=== PATIENT | female | born 1970 | race Caucasian/White ===

== ENCOUNTER 2017-08-14 19:34 | Emergency (ER) | payer MEDICAID ==
[~2017-08-14] VITALS: Ht 177.8 cm; Wt 59.8 kg
[~2017-08-14 19:34] MED LIST: CYCL-1 PO; NEOM10SO7 OT
[2017-08-14 20:15] VITALS: BP 126/75
[2017-08-14] MEDS ORDERED: HYDROcodone/acetaminophen 5mg/325mg tablet PO ONE (22:35)
[2017-08-14 22:55] LABS: APPEARANCE,SYNOVIAL FLUID CLOUDY; COLOR,SYNOVIAL FLUID YELLOW; SYN RBC 33 /CU MM (0); SYN WBC 3175 /CU MM (0-200)
[2017-08-14 22:59] LABS: SYNOVIAL FLUID CRYSTALS QT NO CRYSTALS SEEN
[2017-08-14] MEDS ORDERED: HYDR-3965 PO (23:12)
== END 2017-08-14 23:16 | disposition home or self-care (01) ==
LOC: ER 19:34
DX: M25.461 Effusion, right knee (principal); M25.561 Pain in right knee; F15.10 Other stimulant abuse, uncomplicated; M19.90 Unspecified osteoarthritis, unspecified site; Z88.5 Allergy status to narcotic agent; Z98.890 Other specified postprocedural states
CPT/HCPCS: 20610; 87015; 87070; 87075; 89051; 89060; 99284

== ENCOUNTER 2018-01-22 09:51 | Emergency (ER) | payer MEDICAID ==
[~2018-01-22] VITALS: Ht 177.8 cm; Wt 66.0 kg
[2018-01-22] MEDS ORDERED: SULF1TAB49 PO (10:26)
[2018-01-22] MEDS ORDERED: CEPH-572 PO (10:26)
[2018-01-22 10:34] VITALS: BP 132/82
== END 2018-01-22 10:35 | disposition home or self-care (01) ==
LOC: ER 09:52
DX: L02.811 Cutaneous abscess of head [any part, except face] (principal); M19.90 Unspecified osteoarthritis, unspecified site; M06.9 Rheumatoid arthritis, unspecified; F15.90 Other stimulant use, unspecified, uncomplicated; Z98.890 Other specified postprocedural states; Z88.5 Allergy status to narcotic agent
CPT/HCPCS: 99283

== ENCOUNTER 2018-06-01 14:13 | Emergency (ER) | payer MEDICAID ==
[~2018-06-01] VITALS: Ht 177.8 cm; Wt 60.7 kg
[2018-06-01 14:19] VITALS: BP 116/67
== END 2018-06-01 14:50 | disposition home or self-care (01) ==
LOC: ER 14:14
DX: J02.9 Acute pharyngitis, unspecified (principal); F12.90 Cannabis use, unspecified, uncomplicated; F15.90 Other stimulant use, unspecified, uncomplicated; F17.200 Nicotine dependence, unspecified, uncomplicated; Z98.890 Other specified postprocedural states; Z88.5 Allergy status to narcotic agent; Z79.899 Other long term (current) drug therapy
CPT/HCPCS: 99284

== ENCOUNTER 2018-10-20 16:25 | Emergency (ER) | payer MEDICAID ==
[~2018-10-20] VITALS: Ht 177.8 cm; Wt 63.6 kg
[2018-10-20 16:27] VITALS: BP 188/75
[2018-10-20] MEDS ORDERED: SULF1TAB49 PO (16:54)
== END 2018-10-20 17:13 | disposition home or self-care (01) ==
LOC: ER 16:25
DX: L02.811 Cutaneous abscess of head [any part, except face] (principal); M19.90 Unspecified osteoarthritis, unspecified site; M06.9 Rheumatoid arthritis, unspecified; F12.90 Cannabis use, unspecified, uncomplicated; F15.90 Other stimulant use, unspecified, uncomplicated; Z79.899 Other long term (current) drug therapy; Z79.2 Long term (current) use of antibiotics; Z88.6 Allergy status to analgesic agent; Z88.5 Allergy status to narcotic agent; Z98.890 Other specified postprocedural states
CPT/HCPCS: 99283

== ENCOUNTER 2019-02-06 17:05 | Emergency (ER) | payer MEDICAID ==
[~2019-02-06] VITALS: Ht 177.8 cm; Wt 60.0 kg
[2019-02-06 17:10] VITALS: BP 127/72
[2019-02-06] MEDS ORDERED: HYDR-4353 PO (17:29)
[2019-02-06] MEDS ORDERED: HYDROcodone/acetaminophen 10/325mg tab PO ONE (17:30)
== END 2019-02-06 17:59 | disposition home or self-care (01) ==
LOC: ER 17:06
DX: S83.91XA Sprain of unspecified site of right knee, initial encounter (principal); M19.90 Unspecified osteoarthritis, unspecified site; F41.9 Anxiety disorder, unspecified; F17.200 Nicotine dependence, unspecified, uncomplicated; F12.90 Cannabis use, unspecified, uncomplicated; F15.90 Other stimulant use, unspecified, uncomplicated; Z88.6 Allergy status to analgesic agent; X50.1XXA Overexertion from prolonged static or awkward postures, initial encounter; Y93.89 Activity, other specified; Y92.89 Other specified places as the place of occurrence of the external cause; Y99.8 Other external cause status
CPT/HCPCS: 29515; 73564; 99284

== ENCOUNTER 2019-06-16 16:11 | Emergency (ER) | payer MEDICAID ==
[~2019-06-16] VITALS: Ht 177.8 cm; Wt 59.0 kg
[2019-06-16 16:21] VITALS: BP 117/59
[2019-06-16] MEDS ORDERED: ibuprofen tablet 400 MG TABLET PO ONE (17:35)
== END 2019-06-16 18:12 | disposition home or self-care (01) ==
LOC: ER 16:12
DX: M79.641 Pain in right hand (principal); M06.9 Rheumatoid arthritis, unspecified; F41.9 Anxiety disorder, unspecified; F12.90 Cannabis use, unspecified, uncomplicated; F15.90 Other stimulant use, unspecified, uncomplicated; Z98.890 Other specified postprocedural states; Z88.5 Allergy status to narcotic agent; Z79.2 Long term (current) use of antibiotics; Z79.899 Other long term (current) drug therapy; W01.0XXA Fall on same level from slipping, tripping and stumbling without subsequent striking against object, initial encounter; Y93.89 Activity, other specified; Y92.009 Unspecified place in unspecified non-institutional (private) residence as the place of occurrence of the external cause; Y99.8 Other external cause status
CPT/HCPCS: 29125; 73130; 99283

== ENCOUNTER 2019-07-21 11:50 | Emergency (ER) | payer MEDICAID ==
[~2019-07-21] VITALS: Ht 177.8 cm; Wt 67.8 kg
[2019-07-21] MEDS ORDERED: acetaminophen 325mg tablet PO ONE (13:05)
[2019-07-21] MEDS ORDERED: normal saline 1000ml 1,000 ML IV ONE (13:05)
[2019-07-21] MEDS ORDERED: clindamycin 600mg/D5W 50ml 50 ML IV ONE (13:15)
[2019-07-21] MEDS ORDERED: normal saline 1000ML IV soln IV ONE (13:15)
[2019-07-21] MEDS ORDERED: LIDOcaine 1% W/epiNEPHrine 1:200,000 10ml vial IJ ONE ×2 (13:15)
[2019-07-21] MEDS ORDERED: fentaNYL/PF 50MCG/1 ML 2ML syringe IV ONE (13:15)
[2019-07-21 13:43] LABS: BASOPHILS # (AUTO) 0.1 X10'3 (0-0.2); BASOPHILS % (AUTO) 0.5 % (0-1); EOSINOPHILS # (AUTO) 0.2 X10'3 (0-0.9); EOSINOPHILS % (AUTO) 1.8 % (0-6); HEMATOCRIT 37.9 % (35.0-45.0); HEMOGLOBIN 12.8 g/dl (12.0-16.0); LYMPHOCYTES # (AUTO) 1.3 X10'3 (1.1-4.8); LYMPHOCYTES % (AUTO) 9.4 % (21-51); MEAN CORPUSCULAR HEMOGLOBIN 30.6 PG (27.0-31.0); MEAN CORPUSCULAR HGB CONC 33.9 g/dL (33.0-36.5); MEAN CORPUSCULAR VOLUME 90.3 FL (78-98); MEAN PLATELET VOLUME 8.7 FL (7.4-10.4); MONOCYTES # (AUTO) 1.2 X10'3 (0-0.9); MONOCYTES % (AUTO) 8.5 % (2-12); NEUTROPHILS # (AUTO) 10.9 X10'3 (1.8-7.7); NEUTROPHILS % (AUTO) 79.8 % (42-75); PLATELET COUNT 281 X10'3 (140-440); RED CELL DISTRIBUTION WIDTH 13.4 % (11.5-14.5); WHITE BLOOD COUNT 13.7 X10'3 (4.5-11.0)
[2019-07-21] MEDS ORDERED: CEPH500C5 PO (13:57)
[2019-07-21] MEDS ORDERED: SULF1TAB49 PO (13:57)
[2019-07-21 14:01] LABS: ALANINE AMINOTRANSFERASE 30 U/L (12-78); ALBUMIN 2.9 G/DL (3.4-5.0); ALBUMIN/GLOBULIN RATIO 0.7 (1.1-1.5); ALKALINE PHOSPHATASE 137 IU/L (46-116); ANION GAP 6 (8-16); ASPARTATE AMINO TRANSFERASE 13 U/L (10-37); BILIRUBIN,TOTAL 0.4 MG/DL (0.1-1.0); BLOOD UREA NITROGEN 7 MG/DL (7-18); BUN/CREATININE RATIO 11.1 (6.6-38.0); CALCIUM 8.4 MG/DL (8.5-10.1); CHLORIDE 100 MMOL/L (99-107); CREATININE 0.63 MG/DL (0.40-0.90); GLUCOSE 106 MG/DL (70-104); POTASSIUM 3.3 MMOL/L (3.5-5.1); SODIUM 135 MMOL/L (135-145); TOTAL CARBON DIOXIDE 28.6 MMOL/L (24-32); TOTAL PROTEIN 7.2 G/DL (6.4-8.2); eGFR > 90 ML/MIN
[2019-07-21 14:46] LABS: CLARITY,URINE CLOUDY (Clear); COLOR,URINE YELLOW (Yellow); GLUCOSE, URINE NEGATIVE (Neg); KETONES,URINE NEGATIVE (Neg); LEUKOCYTE ESTERASE ,URINE SMALL (Neg); NITRITES, URINE POSITIVE (Neg); OCCULT BLOOD,URINE SMALL (Neg); PROTEIN,URINE NEGATIVE (Neg); UROBILINOGEN,URINE 0.2 E.U/dL (0.2-1.0)
[2019-07-21 14:50] LABS: UA COLLECTION TYPE CLN CATCH MIDSTREAM
[2019-07-21 14:52] LABS: BACTERIA,URINE 3+ /HPF (Neg); RBC,URINE 0-2 /HPF (0-2); SQUAMOUS EPITHELIAL CELL,UR MANY /LPF (FEW); WBC,URINE 0-4 /HPF (0-4)
[2019-07-21 15:10] VITALS: BP 117/71
== END 2019-07-21 15:13 | disposition home or self-care (01) ==
LOC: ER 11:50
DX: L02.412 Cutaneous abscess of left axilla (principal); M06.9 Rheumatoid arthritis, unspecified; F41.9 Anxiety disorder, unspecified; F17.200 Nicotine dependence, unspecified, uncomplicated; F12.90 Cannabis use, unspecified, uncomplicated; F15.90 Other stimulant use, unspecified, uncomplicated; Z72.89 Other problems related to lifestyle; Z98.890 Other specified postprocedural states; Z88.5 Allergy status to narcotic agent; Z79.899 Other long term (current) drug therapy
CPT/HCPCS: 10060; 36415; 80053; 81001; 83605; 84145; 85025; 87040; 96365; 96375; 99284; J3010; J7030; 87186; J3490

== ENCOUNTER 2020-06-01 21:36 | Emergency (ER) | payer MEDICAID ==
[~2020-06-01] VITALS: Ht 177.8 cm; Wt 70.7 kg
[2020-06-01] MEDS ORDERED: cephalexin 250mg capsule PO ONE (22:10)
[2020-06-01] MEDS ORDERED: acetaminophen 325mg tablet PO ONE (22:10)
[2020-06-01] MEDS ORDERED: ondansetron 4mg rapidly disintigrating tab PO ONE (22:10)
[2020-06-01] MEDS ORDERED: sulfamethoxazole/trimethoprim DS (800/160mg) tablet PO ONE (22:10)
[2020-06-01] MEDS ORDERED: CEPH250T PO (22:14)
[2020-06-01] MEDS ORDERED: SULF1TAB49 PO (22:14)
[2020-06-01 22:23] VITALS: BP 120/67
== END 2020-06-01 22:26 | disposition home or self-care (01) ==
LOC: ER 21:37
DX: L03.211 Cellulitis of face (principal); F41.9 Anxiety disorder, unspecified; F12.90 Cannabis use, unspecified, uncomplicated; F15.90 Other stimulant use, unspecified, uncomplicated; Z98.890 Other specified postprocedural states; Z72.89 Other problems related to lifestyle; Z88.5 Allergy status to narcotic agent; Z79.2 Long term (current) use of antibiotics
CPT/HCPCS: 99284

== ENCOUNTER 2020-11-06 19:51 | Emergency (ER) | payer MEDICAID ==
[~2020-11-06] VITALS: Ht 177.8 cm; Wt 63.6 kg
[2020-11-06 20:05] VITALS: BP 111/73
== END 2020-11-07 00:46 | disposition left against medical advice (07) ==
LOC: ER 19:52
DX: M25.562 Pain in left knee (principal); M25.522 Pain in left elbow; Z53.21 Procedure and treatment not carried out due to patient leaving prior to being seen by health care provider
CPT/HCPCS: 73564

== ENCOUNTER 2021-08-17 10:49 | Emergency (ER) | payer MEDICAID ==
[~2021-08-17] VITALS: Ht 177.8 cm; Wt 63.6 kg
[2021-08-17] MEDS ORDERED: LIDOcaine 1% W/epiNEPHrine 1:200,000 10ml vial IJ ONE (11:10)
[2021-08-17] MEDS ORDERED: SULF1TAB49 PO (11:10)
[2021-08-17] MEDS ORDERED: CEPH-585 PO (11:10)
[2021-08-17] MEDS ORDERED: LIDOCAINE 2% w/EPI 1:100:000 30mL injection MDV**cath lab 1 only SQ ONE (11:30)
[2021-08-17] MEDS ORDERED: ibuprofen tablet 400 MG TABLET PO ONE (12:55)
[2021-08-17 13:53] VITALS: BP 112/69
== END 2021-08-17 13:57 | disposition home or self-care (01) ==
LOC: ER 10:51
DX: L02.31 Cutaneous abscess of buttock (principal); F41.9 Anxiety disorder, unspecified; F12.10 Cannabis abuse, uncomplicated; F15.10 Other stimulant abuse, uncomplicated; Z88.5 Allergy status to narcotic agent; Z79.899 Other long term (current) drug therapy
CPT/HCPCS: 10060; 87070; 87077; 87186; 99283

== ENCOUNTER 2021-10-20 14:30 | Emergency (ER) | payer MEDICAID ==
[~2021-10-20] VITALS: Ht 177.8 cm; Wt 65.0 kg
[~2021-10-20 14:30] MED LIST changes: +CEPH-585 PO
[2021-10-20 16:11] VITALS: BP 91/52
[2021-10-20] MEDS ORDERED: ibuprofen tablet 400 MG TABLET PO ONE (16:25)
[2021-10-20] MEDS ORDERED: LIDOcaine 1% W/epiNEPHrine 1:100,000 20ml vial SQ ONE (16:25)
[2021-10-20] MEDS ORDERED: sulfamethoxazole/trimethoprim DS (800/160mg) tablet PO ONE (16:30)
[2021-10-20] MEDS ORDERED: SULF1TAB49 PO (17:54)
== END 2021-10-20 18:23 | disposition home or self-care (01) ==
LOC: ER 14:32
DX: L02.212 Cutaneous abscess of back [any part, except buttock and flank] (principal); F41.9 Anxiety disorder, unspecified; F17.200 Nicotine dependence, unspecified, uncomplicated; F12.10 Cannabis abuse, uncomplicated; F15.10 Other stimulant abuse, uncomplicated; Z88.5 Allergy status to narcotic agent; Z79.899 Other long term (current) drug therapy
CPT/HCPCS: 10061; 99284; A6449

== ENCOUNTER 2022-06-07 07:28 | Emergency (ER) | payer MEDICAID, MEDICARE ==
[~2022-06-07] VITALS: Ht 177.8 cm; Wt 65.0 kg
[2022-06-07 08:00] VITALS: BP 112/72
[2022-06-07] MEDS ORDERED: ondansetron/PF 4mg/2ml inj IV ONE (08:45)
[2022-06-07] MEDS ORDERED: ketorolac trometh. 30mg/ml inj. IV ONE (08:45)
[2022-06-07 09:06] LABS: BASOPHILS # (AUTO) 0.1 X10'3 (0-0.2); BASOPHILS % (AUTO) 1.4 % (0-1); EOSINOPHILS # (AUTO) 0.3 X10'3 (0-0.9); HEMATOCRIT 40.5 % (35.0-45.0); HEMOGLOBIN 13.8 g/dl (12.0-16.0); LYMPHOCYTES # (AUTO) 1.5 X10'3 (1.1-4.8); LYMPHOCYTES % (AUTO) 26.6 % (21-51); MEAN CORPUSCULAR HEMOGLOBIN 31.3 PG (27.0-31.0); MEAN CORPUSCULAR VOLUME 91.9 FL (78-98); MEAN PLATELET VOLUME 8.5 FL (7.4-10.4); MONOCYTES # (AUTO) 0.5 X10'3 (0-0.9); MONOCYTES % (AUTO) 9.2 % (2-12); NEUTROPHILS # (AUTO) 3.3 X10'3 (1.8-7.7); NEUTROPHILS % (AUTO) 57.8 % (42-75); PLATELET COUNT 241 X10'3 (140-440); RED CELL DISTRIBUTION WIDTH 12.9 % (11.5-14.5); WHITE BLOOD COUNT 5.7 X10'3 (4.5-11.0)
[2022-06-07 09:20] LABS: ALANINE AMINOTRANSFERASE 29 U/L (12-78); ALBUMIN 3.8 G/DL (3.4-5.0); ALBUMIN/GLOBULIN RATIO 1.2 (1.1-1.5); ALKALINE PHOSPHATASE 97 IU/L (46-116); ANION GAP 8 (8-16); ASPARTATE AMINO TRANSFERASE 16 U/L (10-37); BILIRUBIN,TOTAL 0.4 MG/DL (0.1-1.0); BLOOD UREA NITROGEN 15 MG/DL (7-18); BUN/CREATININE RATIO 22.7 (6.6-38.0); CALCIUM 9.2 MG/DL (8.5-10.1); CHLORIDE 104 MMOL/L (99-107); CREATININE 0.66 MG/DL (0.40-0.90); GLUCOSE 98 MG/DL (70-104); POTASSIUM 3.7 MMOL/L (3.5-5.1); SODIUM 139 MMOL/L (135-145); TOTAL CARBON DIOXIDE 27.2 MMOL/L (24-32); eGFR > 90 ML/MIN
[2022-06-07] MEDS ORDERED: IBUP-1985 PO (10:56)
[2022-06-07] MEDS ORDERED: TRAM1TAB7 PO (10:56)
== END 2022-06-07 11:07 | disposition home or self-care (01) ==
LOC: ER 07:28
DX: S39.012A Strain of muscle, fascia and tendon of lower back, initial encounter (principal); F41.9 Anxiety disorder, unspecified; M19.90 Unspecified osteoarthritis, unspecified site; F12.90 Cannabis use, unspecified, uncomplicated; F15.90 Other stimulant use, unspecified, uncomplicated; Z72.89 Other problems related to lifestyle; Z98.890 Other specified postprocedural states; Z88.5 Allergy status to narcotic agent; Z79.899 Other long term (current) drug therapy; X50.1XXA Overexertion from prolonged static or awkward postures, initial encounter; Y93.9 Activity, unspecified; Y92.89 Other specified places as the place of occurrence of the external cause; Y99.8 Other external cause status
CPT/HCPCS: 36415; 71045; 72070; 72100; 80053; 85025; 96374; 96375; 99284; J1885; J2405

== ENCOUNTER 2022-09-25 00:29 | Emergency (ER) | payer MEDICAID ==
[~2022-09-25 00:29] MED LIST changes: -CEPH-585 PO; +IBUP-1985 PO
== END 2022-09-25 00:33 | disposition left against medical advice (07) ==
LOC: ER 00:30
DX: Z02.89 Encounter for other administrative examinations (principal); Z53.21 Procedure and treatment not carried out due to patient leaving prior to being seen by health care provider